=== PATIENT | female | born 1950 | race Caucasian/White ===

== ENCOUNTER 2020-12-08 10:54 | Emergency (ER) | payer OTHER ==
[~2020-12-08] VITALS: Ht 160 cm; Wt 77.1 kg
[~2020-12-08 10:54] MED LIST: CHOLESTEROL; EFFEXOR 5050 MG/1 T1 PO; KEFLEX500 MG PO; TRAZODONE HCL50 MG PO
[2020-12-08] MEDS ORDERED: LIPITOR10 MG PO (11:09)
[2020-12-08] MEDS ORDERED: SYMBICORT160 MCG/4. INH (11:09)
[2020-12-08] MEDS ORDERED: PROAIR HFA8.5 GM INH (11:10)
[2020-12-08 11:22] LABS: ABSOLUTE BASOPHILS 0.1 thou/uL (0.0-0.2); ABSOLUTE LYMPHOCYTES 1.3 thou/uL (0.8-5.3); ABSOLUTE MONOCYTES 0.4 thou/uL (0.0-1.2); ABSOLUTE NEUTROPHILS 5.8 thou/uL (1.6-8.1); BASOPHILS 1.1 %; EOSINOPHILS 0.5 %; HEMATOCRIT 42.6 % (37.0-47.0); HEMOGLOBIN 14.1 gm/dL (12.0-15.0); LYMPHOCYTES 16.9 %; MCH 29.7 pg (26.0-34.0); MONOCYTES 5.2 %; NUCLEATED RBCS 0 /100WBC; PLATELET COUNT* 242 thou/uL (150-400); POLYS 76.3 %; RBC 4.73 mil/uL (4.20-5.00); WBC 7.6 thou/uL (4.0-11.0)
[2020-12-08 11:32] LABS: POTASSIUM 4.4 mmol/L (3.5-5.1)
[2020-12-08 11:43] LABS: ALBUMIN 3.5 g/dL (3.4-5.0); TOTAL BILIRUBIN 0.2 mg/dL (<0.1-1.0); TOTAL PROTEIN 7.3 g/dL (6.4-8.2)
[2020-12-08 12:37] VITALS: BP 179/93
--- NOTE | 2020-12-08 14:36 | EKG ---
[place] [address] ELECTROCARDIOGRAM REPORT Name: ARIELLA ROMAN [id number] Admission: 12/08/20 Attend Phys: Discharge: 12/08/20 Date of : 48 Date of Service: 12/08/20 1117 Report #: [id number] THIS REPORT FOR: //name// [facility] ED Test Date: 2020-12-08 Test Time: 11:17:06 Pat Name: ARIELLA ROMAN Department: Room: Gender: Speaker Wirer: : 1950 Requested By: Carlos Ames Order Number: [id number] MD: Giuseppe Bass Measurements Intervals [place] Rate: 69 P: 62 MD: 151 QRS: 24 QRSD: 79 T: 62 QT: 392 QTc: 420 Interpretive Statements Sinus rhythm No previous ECG available for comparison Electronically Signed On 12-08-2020 14:36:25 CDT by Giuseppe Bass [email or web address] <ELECTRONICALLY SIGNED> By: Giuseppe Bass MD, [facility] 12/08/20 1436 1117 16 Giuseppe Bass MD, FACC /EPI
== END 2020-12-08 12:40 | disposition home or self-care (01) ==
LOC: M.ERS 10:54
PROVIDERS: Family Medicine
DX: R42 Dizziness and giddiness (principal); F32.9 Major depressive disorder, single episode, unspecified; E78.5 Hyperlipidemia, unspecified; J44.9 Chronic obstructive pulmonary disease, unspecified; F17.210 Nicotine dependence, cigarettes, uncomplicated; Z79.51 Long term (current) use of inhaled steroids; Z79.899 Other long term (current) drug therapy